=== PATIENT | female | born 2000 | race Caucasian/White ===

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

== ENCOUNTER → 2021-01-16 | Outpatient (CLI) | payer BC, OTHER ==
--- NOTE | 2021-01-16 12:42 | XR ---
EXAMINATION TYPE: XR scoliosis survey DATE OF EXAM: 01/16/2021 Comparison: None Clinical History: 20-year-old female M41.9 Scoliosis TECHNIQUE: AP and lateral views Findings: 12 rib-bearing thoracic vertebral bodies. 5 lumbar type vertebral bodies. There is a dextroconvex cur vature centered on the thoracolumbar junction with a Ghotra angle of 8 degrees and compensatory leftwar d curvature is in the upper to mid thoracic spine and also the mid lumbar spine. Cholecystectomy clip s. Vertebral body heights are preserved. Impression: Slight dextroconvex curvature with a Ghotra angle of 8 degrees centered along the thoracolumbar junctio n. There are slight compensatory leftward curvatures in the upper to mid thoracic spine and mid lumba r spine.
== END | disposition home or self-care (01) ==
LOC: RADXRMAIN 11:34
PROVIDERS: ATTEND Family Medicine
DX: M43.8X5 Other specified deforming dorsopathies, thoracolumbar region (principal)
CPT/HCPCS: 72082